=== PATIENT | female | born 1940 | race Caucasian/White ===

== ENCOUNTER 2017-12-20 14:00 | Inpatient (IN) ==
[2017-12-20] MEDS ORDERED: IOPAMIDOL 100 ML BOTTLE IV ONE (14:01)
[2017-12-20] MEDS ORDERED: 0.9 % SODIUM CHLORIDE 1,000 ML IV ONE ×3 (14:11→17:25)
[2017-12-20] MEDS ORDERED: ACETAMINOPHEN 325 MG TABLET PO ONE (14:14)
[2017-12-20 14:46] LABS: Mean Corpuscular HGB Conc 33.7 g/dL (31.0-36.0); Mean Corpuscular Hemoglobin 30.4 pg (26.0-34.0); Platelet Count 313 K/mcL (140-440); RBC 3.57 M/mcL (4.00-5.20); Red Cell Distribution Width 14.3 % (11.5-14.5)
[2017-12-20] MEDS ORDERED: IBUPROFEN 200 MG TABLET PO ONE (14:52)
[2017-12-20] MEDS: IBUPROFEN 400 MG TABLET PO ONE ×2 (14:55→14:56)
[2017-12-20 15:06] LABS: ALT/SGPT 22 U/l (0-40); Albumin/Globulin Ratio 1.3 (1.0-2.3); Alkaline Phosphatase 73 U/L (39-117); Blood Urea Nitrogen 21 mg/dl (8-23)
--- NOTE | 2017-12-20 15:10 | XRay Report ---
CLINICAL INFORMATION: Fever and weakness COMPARISON: 08/19/2017 FINDINGS: Moderate cardiomegaly is unchanged. Mediastinum is unremarkable. Pulmonary vessels are mildly distended the upper lobes. Mild underlying centrilobular emphysema changes seen as before. Focal scarring in the left lateral base unchanged. No effusion IMPRESSION: Mild CHF or volume overload. Moderate centrilobular emphysema Scarring left lateral base is stable - no definite infiltrate Interpreted and Authenticated by: Mo Delcid 12/20/17
[2017-12-20 15:15] LABS: Band Neutrophils % 1 % (0-10); Eosinophils % (Manual) 3 % (0-7); Lymphocytes % 5 % (15-49); Monocytes % (Manual) 4 % (1-12); Myelocytes % 1 % (0-0); Platelet Estimate NORMAL (NORMAL); RBC Morphology NORMAL (NORMAL); Segmented Neutrophils % 86 % (38-78)
[2017-12-20 15:22] LABS: Appearance,Urine CLEAR; Bilirubin,Urine NEG (NEG); Color,Urine YELLOW; Glucose,Urine (UA) NORM (NEG); Leukocyte Esterase,Urine TRACE /uL (NEG); Protein,Urine NEG (NEG); Specific Gravity,Urine 1.015 (1.000-1.035); Urine Blood NEG ery/mcL (<5); Urobilinogen,Urine NORM (NEG)
[2017-12-20 15:23] LABS: Bacteria,Urine 0 /hpf (0); Urine Hyaline Cast < 1 /lpf (0-2); Urine RBC < 1 /hpf (0-1); Urine Squamous Epithelial Cell < 1 /hpf (0-4); Urine WBC < 1 /hpf (0-4)
[2017-12-20] MEDS ORDERED: cefTRIAXone 1 GM VIAL IV ONE (15:33)
--- NOTE | 2017-12-20 16:17 | Emergency Department Note ---
Fever HPI - General Chief Complaint: Fever Stated Complaint: Fever, Lower abdominal pain. Pain with urination Time Seen by Provider: 12/20/17 14:14 Source: patient Mode of arrival: ambulatory Limitations: no limitations - History of Present Illness HPI Narrative: 77-year-old female presents with fever, disorientation, abdominal pain and back pain. States she is currently being treated for UTI and just finished her Keflex yesterday. States she has been getting worse not better. Positive nausea. No vomiting or diarrhea. Fever of 103 at home. She was also 103 on arrival here today. No cough or sore throat. No cold symptoms. No headache or rash. No treatments prior to arrival. Denies any chest pain or syncope. No dizziness. Does have some generalized weakness. - Related Data Home Medications Medication Instructions Recorded Confirmed Fluticasone Propionate [Flonase] 0 mg INTRANASAL BID 12/20/17 12/20/17 Previous Rx's Medication Instructions Recorded aspirin 325 mg tablet,delayed 325 mg PO QDAY #30 tab 05/27/17 release lactobacillus combination no.8 3 3,000 mmu cells PO QDAY #30 cap 06/14/17 billion cell capsule risperidone 1 mg tablet 1 mg PO QDAY #30 tab 07/14/17 cetirizine 10 mg capsule 10 mg PO QDAY #30 cap 08/11/17 azelastine 0.15 % (205.5 mcg) 2 spray INTRANASAL BID #30 ml 10/17/17 nasal spray gabapentin 300 mg capsule 300 mg PO QHS #30 cap 10/17/17 E2/E3 20/80 1MG/GM 0.5 g TOPICAL DIRECTED #100 g 11/24/17 phenazopyridine 97.5 mg tablet 97.5 mg PO TID PRN #30 tab 11/29/17 Urinary Pain Relief 97.5 mg tablet 97.5 mg PO TID PRN 21 Days #30 tab 12/08/17 NS Allergies Allergy/AdvReac Type Severity Reaction Status Date / Time grass pollen Allergy Unknown Nasal Verified 12/20/17 14:05 Discharge, sinus stuffy Minocycline Allergy Unknown Rash, fever Verified 12/20/17 14:05 Tetracyclines Allergy Unknown Rash, fever Verified 12/20/17 14:05 Review of Systems All systems ED: reviewed and negative except as stated. Fever PMH - Past Medical History PMF Narrative: Past Surgical History (Last Reviewed 12/08/17 @ 14:51 by Lili Ty [facility]) H/O Achilles tendon repair (Chronic) H/O colonoscopy (Chronic 09/17/08) H/O mastectomy (Chronic) H/O oophorectomy (Chronic) H/O: hysterectomy (Chronic) History of cholecystectomy (Chronic) Hx of tonsillectomy (Chronic) Medical history: Reports: arthritis, cancer, COPD, coronary artery disease, DM, GERD, hyperlipidemia, myocardial infarction, osteoporosis, renal disease, other Surgical history ED: Reports: cholecystectomy, tonsillectomy, other (Mastectomy) Psychiatric history: Reports: depression, previous psychiatric hospitalization, other (previous psychosis) - Social History smoking status: Former smoker Alcohol use: Reports: None Drug use: Reports: none Physical Exam Limitations: no limitations General appearance: alert, in no apparent distress Head: atraumatic, normocephalic, normal inspection Eye: Present: normal appearance, PERRL. Absent: conjunctival injection ENT: normal exam, normal oropharynx, mucous membranes moist, TM's normal bilaterally, normal external ear exam Neck: Present: normal inspection, trachea midline. Absent: tenderness, meningismus Chest: Present: normal inspection, symmetric chest wall rise Respiratory: Present: normal lung sounds bilaterally, other (Sounds slightly diminished in the bases otherwise cta). Absent: respiratory distress, wheezes, accessory muscle use Cardiovascular: Present: regular rate, normal heart sounds Abdominal: Present: soft, tenderness (Diffuse abdominal tenderness throughout). Absent: distention, guarding, rebound, mass Extremities: Present: normal inspection, normal capillary refill Neurological: Present: alert (She is alert and answers questions and generally knows why she is here however she was repetitive at times) Psychiatric: Present: normal affect, normal mood Skin: Present: warm, dry, intact, normal color, other (Flushed). Absent: rash, cyanosis, diaphoresis Course Vital Signs Temperature 103.8 F H 12/20/17 14:01 Pulse Rate 94 H 12/20/17 14:01 Respiratory Rate 24 H 12/20/17 14:01 Blood Pressure 106/45 12/20/17 14:01 Pulse Oximetry (%) 93 12/20/17 14:01 Temperature 97.9 F 12/20/17 16:47 Pulse Rate 67 12/20/17 16:47 Respiratory Rate 18 12/20/17 16:47 Blood Pressure 87/59 12/20/17 16:47 Pulse Oximetry (%) 95 12/20/17 16:47 Fever - Lab Data Result diagrams: 12/20/17 14:10 12/20/17 14:10 Lab Results 12/20/17 12/20/17 12/20/17 Range/Units 14:10 14:10 14:10 WBC 12.2 H (4.5-11.0) K/mcL RBC 3.57 L (4.00-5.20) M/mcL Hgb 10.8 L (12.0-15.0) g/dL Hct 32.2 L (36.0-48.0) % MCV 90.0 (80.0-100.0) fL MCH 30.4 (26.0-34.0) pg MCHC 33.7 (31.0-36.0) g/dL RDW 14.3 (11.5-14.5) % Plt Count 313 (140-440) K/mcL MPV 7.0 L (7.4-10.4) fL Total Counted 100 Seg Neutrophils % 86 H (38-78) % Band Neutrophils % 1 (0-10) % Lymphocytes % 5 L (15-49) % Monocytes % (Manual) 4 (1-12) % Eosinophils % (Manual) 3 (0-7) % Myelocytes % 1 H (0-0) % Platelet Estimate Normal (NORMAL) RBC Morphology Normal (NORMAL) VBG Lactic Acid 1.0 (0.5-2.2) mmol/L Sodium 132 L (133-145) mmol/L Potassium 4.5 (3.3-5.1) mmol/L Chloride 96 (96-108) mmol/L Carbon Dioxide 22 (22-30) mmol/L Anion Gap 14.0 (8-16) BUN 21 (8-23) mg/dl Creatinine 1.1 (0.6-1.1) mg/dl GFR Calculation 49 Glucose 108 H (70-105) mg/dL Calcium 9.3 (8.6-10.4) mg/dl Total Bilirubin 0.4 (0.0-1.0) mg/dL AST 22 (0-37) U/l ALT 22 (0-40) U/l Alkaline Phosphatase 73 (39-117) U/L Total Protein 7.2 (5.9-8.4) gm/dL Albumin 4.0 (3.2-5.2) gm/dL Globulin 3.2 (2.2-3.7) gm/dL Albumin/Globulin Ratio 1.3 (1.0-2.3) Urine Color Urine Appearance Urine pH (5.0-9.0) Ur Specific Mcgrady (1.000-1.035) Urine Protein (NEG) mg/dL Urine Glucose (UA) (NEG) mg/dL Urine Ketones (NEG) mg/dL Urine Occult Blood (<5) kaylin/mcL Urine Nitrate (NEG) Urine Bilirubin (NEG) mg/dL Urine Urobilinogen (NEG) mg/dL Ur Leukocyte Esterase (NEG) /uL Urine RBC (0-1) /hpf Urine WBC (0-4) /hpf Ur Squamous Epith Cells (0-4) /hpf Urine Bacteria (0) /hpf Hyaline Casts (0-2) /lpf Ur Culture Indicated? 12/20/17 Range/Units 14:43 WBC (4.5-11.0) K/mcL RBC (4.00-5.20) M/mcL Hgb (12.0-15.0) g/dL Hct (36.0-48.0) % MCV (80.0-100.0) fL MCH (26.0-34.0) pg MCHC (31.0-36.0) g/dL RDW (11.5-14.5) % Plt Count (140-440) K/mcL MPV (7.4-10.4) fL Total Counted Seg Neutrophils % (38-78) % Band Neutrophils % (0-10) % Lymphocytes % (15-49) % Monocytes % (Manual) (1-12) % Eosinophils % (Manual) (0-7) % Myelocytes % (0-0) % Platelet Estimate (NORMAL) RBC Morphology (NORMAL) VBG Lactic Acid (0.5-2.2) mmol/L Sodium (133-145) mmol/L Potassium (3.3-5.1) mmol/L Chloride (96-108) mmol/L Carbon Dioxide (22-30) mmol/L Anion Gap (8-16) BUN (8-23) mg/dl Creatinine (0.6-1.1) mg/dl GFR Calculation Glucose (70-105) mg/dL Calcium (8.6-10.4) mg/dl Total Bilirubin (0.0-1.0) mg/dL AST (0-37) U/l ALT (0-40) U/l Alkaline Phosphatase (39-117) U/L Total Protein (5.9-8.4) gm/dL Albumin (3.2-5.2) gm/dL Globulin (2.2-3.7) gm/dL Albumin/Globulin Ratio (1.0-2.3) Urine Color Yellow Urine Appearance Clear Urine pH 6.0 (5.0-9.0) Ur Specific [place]y 1.015 (1.000-1.035) Urine Protein Neg (NEG) mg/dL Urine Glucose (UA) Norm (NEG) mg/dL Urine Ketones Neg (NEG) mg/dL Urine Occult Blood Neg (<5) kaylin/mcL Urine Nitrate Pos A (NEG) Urine Bilirubin Neg (NEG) mg/dL Urine Urobilinogen Norm (NEG) mg/dL Ur Leukocyte Esterase Trace (NEG) /uL Urine RBC < 1 (0-1) /hpf Urine WBC < 1 (0-4) /hpf Ur Squamous Epith Cells < 1 (0-4) /hpf Urine Bacteria 0 (0) /hpf Hyaline Casts < 1 (0-2) /lpf Ur Culture Indicated? No Disposition Pt seen by MANAGEMENT DEVELOPMENT SPECIALIST/PA only: Yes Clinical Impression: Fever, Diverticulitis, Urinary tract infection Referrals: Silvia Arizmendi, ANDREY, SHORTS SIFTER [Primary Care Provider] -
[2017-12-20] MEDS ORDERED: HYDROmorphone 2 MG/ML VIAL IV PRN (16:43)
--- NOTE | 2017-12-20 16:47 | Cat Scan Report ---
CLINICAL INFORMATION: Abdominal pain chronic UTIs COMPARISON: None. TECHNIQUE: Following enteric contrast, 80 cc of Isovue-300 were injected intravenously, and 60 seconds later, 0.625 mm helical slices were obtained from the mid heart through the subtrochanteric regions. Following reconstruction, 2.5 mm sagittal, coronal and axial reformatted images were processed and reviewed at bone, lung and soft tissue windows. Five minutes later, 0.625 mm helical slices were obtained from the mid heart through the kidneys and viewed at soft tissue windows.The exam was performed using radiation dose optimization techniques including, but not limited to, automated exposure control, adjustment of the mA and/or kV according to patient size and use of iterative reconstruction technique. FINDINGS: Lung bases show moderate peripheral interstitial fibrosis and scattered bullae - similar to a chest CT from 09/24/2016. No effusions. The visualized heart is grossly normal. Images through the abdomen show the liver to be normal in size, configuration and attenuation. The gallbladder is surgically absent. Intrahepatic and common bile ducts are normal caliber CBD is 5 mm. Both kidneys, adrenal glands, spleen, pancreas and aorta including aortic branches are normal in size configuration and attenuation without focal lesion. Images through the pelvis show Riley catheter proper position in the urinary bladder. Bladder is normal. Hysterectomy last oophorectomy changes are noted. There is moderate simple appearing diverticulitis in the mid/distal sigmoid colon. The wall is mildly thickened and there is mild inflammation in the perisigmoid fat. No abscess identified. The remaining colon appendix small bowel and stomach are normal. Bone windows show only degenerative changes in the lumbar spine IMPRESSION: 1. Mild diverticulitis in the mid and distal sigmoid colon. No abscess or other complication. 2. Both kidneys, upper collecting systems, ureters and urinary bladder are unremarkable. 3. Moderate interstitial fibrosis in the lung bases with scattered bullae similar to chest CT from 09/24/2016. 4. Interpreted and Authenticated by: Mo Delcid 12/20/17
[2017-12-20] MEDS ORDERED: metroNIDAZOLE 500 MG/100 ML BAG IV ONE ×2 (17:28→18:00)
[2017-12-20] MEDS ORDERED: IBUPROFEN 600 MG TABLET PO PRN (17:44)
[2017-12-20] MEDS ORDERED: NALOXONE HCL 0.4 MG/ML VIAL IV PRN (17:44)
[2017-12-20] MEDS ORDERED: LIDOCAINE 5% OINT TUBE 35GM TOPICAL PRN (17:44)
[2017-12-20] MEDS ORDERED: ACETAMINOPHEN 325 MG TABLET PO PRN (17:44)
[2017-12-20] MEDS ORDERED: ONDANSETRON 4 MG/2 ML VIAL IV PRN (17:44)
--- NOTE | 2017-12-20 17:45 | Internal Med History&Physical ---
Medical - H&P: HPI Patient information: Note initiated : 12/20/17 at 5:36 pm Service Date, if different from initiated Date: [] Patient: Jamila Delgadillo a 77 y/o F admitted on for Fever, Lower abdominal pain. Pain with urination. Chief Complaint: [] History of present illness: Ms. Delgadillo is a 77 year old Female with h/o psych issues presents to the ER today with complaints of fever x 1 day, she ntoes that she was doing ok till yesterday, butn noted that she had high grade fever, and not feeling well therefore presented to the ER. She is a poor history provider, and had was unable to provide a comphrensive history She notes that for the last few weeks she has been having lower pelvic pain, burining urine and hypogastric abdominal pain, she has been diagnosed with UTI multiple times and has had 3 rounds of antibiotics by her urologist. The patient reports severe pain, during micuration, burning sensation, increased frequency of urination. Today she noted that she had a high grade fever and therefore presented to the ER. She is just completed a course of Keflex for UTI. The patient notes that she has intermittent constipation, but no other complaints, no headache or dizziness, no runny nose, no couhg, no chest pain, no shorntess of breath, no nausea or vomiting, no diarrhea. She has no flank pain, Fever and malaise, chills only for 1 day. In the ER she was noted to be very febrile on presentation, Her labs showed leucocytosis with wbc of 12, normal lactic ac id, and labile bp, she was given rocephin and IV fluids with improvement in her condition. The pt had CT abdomen which showed mild sigmoid diverticulitis. She is being admitted to the hospital for further management. 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) Unspecified psychosis (Chronic) Closed head injury (Resolved) Pulmonary nodule, right (Chronic) Bigeminal rhythm (Chronic) COPD (chronic obstructive pulmonary disease) (Chronic ~2002) Exposure to TB (Resolved) History of tobacco use (Chronic) Sinus drainage (Chronic) Anxiety (Chronic) Anemia (Chronic) Skin disorder (Chronic) Sinusitis, chronic (Chronic) SOB (shortness of breath) (Chronic) Rheumatic fever (Chronic) Retinal detachment (Chronic) Renal failure (Resolved) 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 ) Positive LAMONT (antinuclear antibody) (Chronic 05/23/14) Pneumonia due to Streptococcus (Resolved) Osteoarthrosis (Chronic 11/12/13) Myocardial infarct, old (Chronic) Lung disease (Chronic) On termite treater drug therapy (Chronic) Left bundle branch block (LBBB) (Chronic) Hyperlipidemia (Chronic) Heartburn (Chronic) DMII (diabetes mellitus, type 2) (Chronic) Depression (Chronic) Physical deconditioning (Chronic) Cough (Chronic 04/23/14) Cataract (Chronic) Breast cancer (Chronic) Acute psychosis (Resolved) Concussion without loss of consciousness (Resolved) Sinusitis (Resolved) UTI (urinary tract infection) (Resolved) Surgical history: Past Surgical History (Last Reviewed 12/08/17 @ 14:51 by CINDY Painter) H/O Achilles tendon repair (Chronic) H/O colonoscopy (Chronic 09/17/08) H/O mastectomy (Chronic) H/O oophorectomy (Chronic) H/O: hysterectomy (Chronic) History of cholecystectomy (Chronic) Hx of tonsillectomy (Chronic) Pertinent family history: Family History (Last Reviewed 12/08/17 @ 14:51 by CINDY Painter) Grandfather Diabetes Grandmother Arthritis Dementia Diabetes Grandmother Cancer Mother Dementia Father Heart attack Family/Other Tuberculosis Family/Other Tuberculosis Medical - H&P: Meds Home Medications Medication Instructions Recorded Confirmed Type aspirin 325 mg tablet,delayed 325 mg PO QDAY #30 tab 05/27/17 12/20/17 Rx release lactobacillus combination no.8 3 3,000 mmu cells PO QDAY #30 cap 06/14/17 Rx billion cell capsule risperidone 1 mg tablet 1 mg PO QDAY #30 tab 07/14/17 12/20/17 Rx cetirizine 10 mg capsule 10 mg PO QDAY #30 cap 08/11/17 12/20/17 Rx azelastine 0.15 % (205.5 mcg) 2 spray INTRANASAL BID #30 ml 10/17/17 12/20/17 Rx nasal spray gabapentin 300 mg capsule 300 mg PO QHS #30 cap 10/17/17 12/20/17 Rx E2/E3 20/80 1MG/GM 0.5 g TOPICAL DIRECTED #100 g 11/24/17 12/20/17 Rx phenazopyridine 97.5 mg tablet 97.5 mg PO TID PRN #30 tab 11/29/17 12/08/17 Rx Urinary Pain Relief 97.5 mg tablet 97.5 mg PO TID PRN 21 Days #30 tab 12/08/17 12/08/17 Rx NS Fluticasone Propionate [Flonase] 0 mg INTRANASAL BID 12/20/17 12/20/17 History Allergies Allergy/AdvReac Type Severity Reaction Status Date / Time grass pollen Allergy Unknown Nasal Verified 12/20/17 14:05 Discharge, sinus stuffy Minocycline Allergy Unknown Rash, fever Verified 12/20/17 14:05 Tetracyclines Allergy Unknown Rash, fever Verified 12/20/17 14:05 Medical - H&P: Exam - Constitutional Vitals: Temp Pulse Resp BP Pulse Ox 100.2 F H 63 21 102/59 94 12/20/17 17:31 12/20/17 17:01 12/20/17 17:31 12/20/17 17:31 12/20/17 17:01 Exam: GENERAL: The patient is a well-developed, well-nourished in no apparent distress. Is alert and oriented x3. VITAL SIGNS: Reviewed and as noted elsewhere. HEENT: Head is normocephalic and atraumatic. Extraocular muscles are intact. Pupils are equal, round, and reactive to light. Nares appeared normal. Mouth appears any without lesions. Mucous membranes are moist. NECK: Normal to inspection, Supple, No lymphadenopathy or thyromegaly. LUNGS: Air entry equal on both sides, no wheezing, crackles or rhonchi noted. No accessory muscles of respiration HEART: Regular rate and rhythm normal, S1 and S2 heard, no Gallop, S3 or Rub Noted, systolic mumrur mitral 4/6 ABDOMEN: Soft, and nondistended. mild hypogastric tenderness, Positive bowel sounds. No hepatosplenomegaly was noted. EXTREMITIES: No cyanosis, clubbing, rash, lesions or edema. NEUROLOGIC: Cranial nerves II through XII are grossly intact. Motor and Sensory System Grossly Intact PSYCHIATRIC: Normal affect, normal mood, SKIN: No ulceration or wounds noted, No jaundice, No rash noted. Medical - H&P: Reslt - Labs CBC & Chem 7: 12/20/17 14:10 12/20/17 14:10 Labs: Short CBC 12/20/17 Range/Units 14:10 WBC 12.2 H (4.5-11.0) K/mcL Hgb 10.8 L (12.0-15.0) g/dL Hct 32.2 L (36.0-48.0) % Plt Count 313 (140-440) K/mcL BMP 12/20/17 14:10 Sodium 132 L Potassium 4.5 Chloride 96 Carbon Dioxide 22 BUN 21 Creatinine 1.1 Glucose 108 H Calcium 9.3 Liver Function 12/20/17 Range/Units 14:10 Total Bilirubin 0.4 (0.0-1.0) mg/dL AST 22 (0-37) U/l ALT 22 (0-40) U/l Alkaline Phosphatase 73 (39-117) U/L Albumin 4.0 (3.2-5.2) gm/dL Urine 12/20/17 Range/Units 14:43 Urine Color Yellow Urine Appearance Clear Urine pH 6.0 (5.0-9.0) Ur Specific [place] 1.015 (1.000-1.035) Urine Protein Neg (NEG) mg/dL Urine Glucose (UA) Norm (NEG) mg/dL Medical - H&P: A/P - Narrative A/P Narrative: A/P Diveritculitis Sepsis COPD stable, no wheeze Urethreitis psychotic disorder, Plan Admit to med surg IV fludis, give total of 4L saline bolus. Monitor bp closely IV cipro and IV flagyl for diverticulitis low residue diet follow cultures topical lidocaine for urethritis, continue home medications. 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
[2017-12-20] MEDS ORDERED: IPRATROPIUM/ALBUTEROL 3 ML AMPUL.NEB NEB PRN (17:51)
[2017-12-20] MEDS: 0.9 % SODIUM CHLORIDE 1,000 ML IV SCH (18:52)
[2017-12-20] MEDS: oxyCODONE/APAP 5/325MG TABLET PO PRN (19:09)
[2017-12-20] MEDS: CIPROFLOXACIN 400 MG/200 ML BAG IV SCH (19:12)
[2017-12-20] MEDS ORDERED: [UNRECOGNIZED DRUG - MIXTURE] TOPICAL SCH (21:00)
[2017-12-20] MEDS: GABAPENTIN 300 MG CAPSULE PO SCH (21:25)
[2017-12-20] MEDS: HEPARIN 5,000 UNIT/ML VIAL SQ SCH (21:25)
[2017-12-20] MEDS: FAMOTIDINE/PF 20 MG/2 ML VIAL IV SCH (21:25)
[2017-12-20] MEDS: AZELASTINE HCL NAS SCH (21:32)
[2017-12-20] MEDS: FLUTICASONE PROPIONATE SPRAY.NAS NS SCH (21:32)
[2017-12-20] MEDS: 0.9 % SODIUM CHLORIDE 10 ML SYRINGE IV SCH (21:32)
[2017-12-21] MEDS: metroNIDAZOLE 500 MG/100 ML BAG IV SCH ×4 (00:28→21:39)
[2017-12-21] MEDS: 0.9 % SODIUM CHLORIDE 1,000 ML IV SCH ×2 (04:18→08:21)
[2017-12-21] MEDS: oxyCODONE/APAP 5/325MG TABLET PO PRN ×2 (05:48→20:11)
[2017-12-21] MEDS: 0.9 % SODIUM CHLORIDE 10 ML SYRINGE IV SCH ×3 (05:49→21:40)
[2017-12-21 08:13] LABS: Basophils # (Auto) 0 K/mcL (0.0-0.3); Basophils % (Auto) 0.7 % (0.0-2.0); Eosinophils # (Auto) 0.4 K/mcL (0.0-0.7); Eosinophils % (Auto) 5.8 % (0.0-7.0); Granulocytes % (Auto) 74.8 % (38.0-78.0); Lymphocytes # (Auto) 0.8 K/mcL (1.5-4.8); Lymphocytes % (Auto) 10.8 % (15.5-49.0); Mean Cell Volume 90.6 fL (80.0-100.0); Mean Corpuscular HGB Conc 33.5 g/dL (31.0-36.0); Mean Corpuscular Hemoglobin 30.3 pg (26.0-34.0); Monocytes # (Auto) 0.6 K/mcL (0.1-0.9); Monocytes % (Auto) 7.9 % (1.0-12.0); Platelet Count 240 K/mcL (140-440); RBC 3.05 M/mcL (4.00-5.20); Red Cell Distribution Width 14.8 % (11.5-14.5)
[2017-12-21 08:33] LABS: ALT/SGPT 19 U/l (0-40); Albumin 3.1 gm/dL (3.2-5.2); Albumin/Globulin Ratio 1.1 (1.0-2.3); Alkaline Phosphatase 60 U/L (39-117); Bilirubin,Direct < 0.2 mg/dL (0.0-0.3); Blood Urea Nitrogen 14 mg/dl (8-23); Gamma Glutamyl Transpeptidase 18 U/L (5-36)
[2017-12-21] MEDS: FAMOTIDINE/PF 20 MG/2 ML VIAL IV SCH ×2 (09:26→20:11)
[2017-12-21] MEDS: HEPARIN 5,000 UNIT/ML VIAL SQ SCH ×2 (09:27→20:11)
[2017-12-21] MEDS: DOCUSATE SODIUM 100 MG CAPSULE PO SCH ×2 (09:29→20:11)
[2017-12-21] MEDS: FLUTICASONE PROPIONATE SPRAY.NAS NS SCH ×2 (09:29→20:11)
[2017-12-21] MEDS: AZELASTINE HCL NAS SCH ×2 (09:29→20:12)
[2017-12-21] MEDS: LACTOBACILLUS 1 CAPSULE PO SCH (09:29)
[2017-12-21] MEDS: risperiDONE 1 MG TABLET PO SCH (09:29)
[2017-12-21] MEDS: ASPIRIN 325 MG ENTERIC COATED TABLET PO SCH (09:29)
[2017-12-21] MEDS: CETIRIZINE 10 MG TABLET PO SCH (09:33)
[2017-12-21] MEDS: CIPROFLOXACIN 400 MG/200 ML BAG IV SCH ×2 (09:33→20:12)
--- NOTE | 2017-12-21 10:53 | Internal Med Progress Note ---
Medical - PN: Subj Patient information: Note initiated : 12/21/17 at 10:49 am Service Date, if different from initiated Date: [] Patient: Jamila Delgadillo a 77 y/o F admitted on 12/20/17 for Fever, Lower Abdominal Pain, Pain with Urination. Chief Complaint: [] Interval history: Ms. Delgadillo is a 77 year old Female with h/o psych issues presents to the ER today with complaints of fever x 1 day, she ntoes that she was doing ok till yesterday, butn noted that she had high grade fever, and not feeling well therefore presented to the ER. She is a poor history provider, and had was unable to provide a comphrensive history She notes that for the last few weeks she has been having lower pelvic pain, burining urine and hypogastric abdominal pain, she has been diagnosed with UTI multiple times and has had 3 rounds of antibiotics by her urologist. The patient reports severe pain, during micuration, burning sensation, increased frequency of urination. Today she noted that she had a high grade fever and therefore presented to the ER. She is just completed a course of Keflex for UTI. The patient notes that she has intermittent constipation, but no other complaints, no headache or dizziness, no runny nose, no couhg, no chest pain, no shorntess of breath, no nausea or vomiting, no diarrhea. She has no flank pain, Fever and malaise, chills only for 1 day. In the ER she was noted to be very febrile on presentation, Her labs showed leucocytosis with wbc of 12, normal lactic ac id, and labile bp, she was given rocephin and IV fluids with improvement in her condition. The pt had CT abdomen which showed mild sigmoid diverticulitis. She is being admitted to the hospital for further management. Dec 21 patient seen examined, still has caal in place, which is bothering her, but beyond this has no other acute complaints, toleating po well, feels hungry, leucocytosis is resolved. continue antibioticx x 1 more day, and anticipate d/c in AM if remains stable. Pertinent ROS: Denies headache, dizziness Denies chest pain, palpitations Denies cough or shortness of breath Denies abdominal pain, nausea or vomiting. - Constitutional Vitals: Vital Signs Temp Pulse Resp BP Pulse Ox 98.6 F 62 16 100/53 96 12/21/17 06:52 12/21/17 07:36 12/21/17 07:36 12/21/17 06:52 12/21/17 08:00 Period Temp Pulse Resp BP Sys/Mace Pulse Ox Last 24 Hr 97.8 F-103.8 F 60-94 11-26 87-126/45-106 90-96 Intake and Output 12/20/17 12/21/17 12/21/17 21:59 05:59 13:59 Intake Total 2730 / 2730 1300 / 1300 340 / 340 Output Total 950 / 950 950 / 950 750 / 750 Balance 1780 / 1780 350 / 350 -410 / -410 Weight 156 lb 8 oz Intake & Output: Intake & Output 12/20/17 12/21/17 12/21/17 21:59 05:59 13:59 Intake Total 2730 / 2730 1300 / 1300 340 / 340 Output Total 950 / 950 950 / 950 750 / 750 Balance 1780 / 1780 350 / 350 -410 / -410 Weight 156 lb 8 oz Intake: IV 2730 / 2730 1100 / 1100 100 / 100 Sodium Chloride 0.9% 1,000 ml @ 2500 / 2500 1000 / 1000 100 mls/hr IV .Q10H [facility] Rx#: [id number] FLAGYL 500 mg In 100 ml As IV . 30 / [facility] Rx#:[id number] Oral 200 / 200 240 / 240 Output: Urine Catheter Amount 950 / 950 950 / 950 750 / 750 Other: Meal Breakfast Percent of Meal Consumed 50% Feeding Ability Independent # Voids 1 # Bowel Movements 1 Exam: Constitutional; Afebrile, cooperative, alert, not in distress. Eyes- No icterus, , No periorbital swelling Ears- Ext ear normal, hearing normal to conversation. Neck- Midline trachea, supple Respiratory system: Air Entry equal on both sides, No crackles or wheezing, no rhonchi. CVS- Rate rhythm regular, S1,S2 heard, no gallop, no rub. Abdomen- Soft abdomen, no organomegaly, no tenderness, no guarding or rigidity, HEEL SORTER- AOOx3, moving all extremities, no gross focal deficit noted. Medical - PN: Obj Da - Labs CBC & Chem 7: 12/21/17 07:29 12/21/17 07:29 Labs: Abnormal Lab Results 12/21/17 12/21/17 12/20/17 07:29 07:29 14:43 WBC RBC 3.05 L Hgb 9.3 L Hct 27.6 L RDW 14.8 H MPV 6.8 L Lymph % (Auto) 10.8 L Lymph # (Auto) 0.8 L Seg Neutrophils % Lymphocytes % Myelocytes % Sodium Carbon Dioxide 21 L Glucose Albumin 3.1 L Triglycerides 193 H Urine Nitrate Pos A 12/20/17 12/20/17 14:10 14:10 WBC 12.2 H RBC 3.57 L Hgb 10.8 L Hct 32.2 L RDW MPV 7.0 L Lymph % (Auto) Lymph # (Auto) Seg Neutrophils % 86 H Lymphocytes % 5 L Myelocytes % 1 H Sodium 132 L Carbon Dioxide Glucose 108 H Albumin Triglycerides Urine Nitrate Meds: Medications Acetaminophen (Tylenol) 650 mg PO Q6HP PRN PRN Reason: PAIN/FEVER > 101 Albuterol/Ipratropium (Duoneb) 3 ml NEB Q6HP PRN PRN Reason: Shortness Of Breath Aspirin (Ecotrin) 325 mg PO QDAY [facility] Last Admin: 12/21/17 09:29 Dose: 325 mg Cetirizine HCl (Zyrtec) 10 mg PO DAILY [facility] Last Admin: 12/21/17 09:33 Dose: 10 mg Docusate Sodium (Colace) 100 mg PO BID [facility] Last Admin: 12/21/17 09:29 Dose: 100 mg Famotidine (Pepcid) 20 mg IV Q12 [facility] Last Admin: 12/21/17 09:26 Dose: 20 mg Fluticasone Propionate (Flonase) 1 spray NS BID [facility] Last Admin: 12/21/17 09:29 Dose: Not Given Gabapentin (Neurontin) 300 mg PO QHS [facility] Last Admin: 12/20/17 21:25 Dose: 300 mg Heparin Sodium (Porcine) (Heparin) 5,000 unit SQ Q12 [facility] Last Admin: 12/21/17 09:27 Dose: 5,000 unit Ciprofloxacin (Cipro) 400 mg in 200 mls @ 200 mls/hr IV Q12H [facility] Last Admin: 12/21/17 09:33 Dose: 200 mls/hr Sodium Chloride (Sodium Chloride 0.9%) 1,000 mls @ 100 mls/hr IV .Q10H [facility] Stop: 12/21/17 13:43 Last Admin: 12/21/17 08:21 Dose: 100 mls/hr Metronidazole (Flagyl) 500 mg in 100 mls @ 100 mls/hr IV Q8H [facility] Last Infusion: 12/21/17 06:49 Dose: Infused Ibuprofen (Motrin) 600 mg PO QIDP PRN PRN Reason: PAIN/FEVER > 101 Lactobacillus Rhamnosus (Culturelle) 1 cap PO DAILY [facility] Last Admin: 12/21/17 09:29 Dose: 1 cap Lidocaine (Lidocaine 5% Oint) 1 dose TOPICAL TIDP PRN PRN Reason: Pain Naloxone HCl (Narcan) 0.1 mg IV Q2MIN PRN PRN Reason: Opiate Reversal Ondansetron HCl (Zofran) 4 mg IV Q6HP PRN PRN Reason: Nausea And Vomiting Oxycodone/Acetaminophen (Percocet 5-325 Mg) 1 tab PO Q4HP PRN PRN Reason: PAIN LEVEL 3-6 Last Admin: 12/21/17 05:48 Dose: 1 tab Azelastine Hcl [ (Astepro] [place]) 2 dose MIRIAM BID [facility] Last Admin: 12/21/17 09:29 Dose: Not Given E2/E3 20/80 1mg/Gm 0 (.5 G Cream) 0.5 dose TOPICAL Q48H [facility] Last Admin: 12/20/17 21:32 Dose: Not Given Risperidone (Risperdal) 1 mg PO QDAY [facility] Last Admin: 12/21/17 09:29 Dose: 1 mg Sodium Chloride (Saline Flush) 10 ml IV Q8 [facility] Last Admin: 12/21/17 05:49 Dose: 10 ml Medical - PN: A/P - Time Spent With Patient Total time spent is greater than 50% in coordination of care (as documented) at patient's floor/unit and/or counseling patient: - Narrative A/P Narrative: A/P, Diveritculitis: improving, low fiber diet, IV cipro and flagyl for now, clinically much better, await microbiology. Sepsis: resolved, COPD stable, no wheeze: no wheeze on exam, duonebs prn Urethritis: topical lidocaine prn, d/c caal, continue home meds psychotic disorder, on risperidone, continue same dvt hep sq Diet regular
[2017-12-21] MEDS: GABAPENTIN 300 MG CAPSULE PO SCH (20:11)
[2017-12-22 05:43] LABS: Basophils # (Auto) 0.1 K/mcL (0.0-0.3); Basophils % (Auto) 1.1 % (0.0-2.0); Eosinophils # (Auto) 0.6 K/mcL (0.0-0.7); Eosinophils % (Auto) 8.6 % (0.0-7.0); Granulocytes % (Auto) 58.8 % (38.0-78.0); Lymphocytes # (Auto) 1.4 K/mcL (1.5-4.8); Mean Cell Volume 90.8 fL (80.0-100.0); Mean Corpuscular HGB Conc 33.7 g/dL (31.0-36.0); Mean Corpuscular Hemoglobin 30.6 pg (26.0-34.0); Monocytes # (Auto) 0.8 K/mcL (0.1-0.9); Monocytes % (Auto) 11.5 % (1.0-12.0); Platelet Count 260 K/mcL (140-440); RBC 3.11 M/mcL (4.00-5.20); Red Cell Distribution Width 14.8 % (11.5-14.5)
[2017-12-22] MEDS: metroNIDAZOLE 500 MG/100 ML BAG IV SCH (05:43)
[2017-12-22] MEDS: 0.9 % SODIUM CHLORIDE 10 ML SYRINGE IV SCH (05:43)
[2017-12-22 06:15] LABS: ALT/SGPT 18 U/l (0-40); Albumin 3.3 gm/dL (3.2-5.2); Albumin/Globulin Ratio 1.3 (1.0-2.3); Alkaline Phosphatase 55 U/L (39-117); Bilirubin,Direct < 0.2 mg/dL (0.0-0.3); Blood Urea Nitrogen 14 mg/dl (8-23); Gamma Glutamyl Transpeptidase 18 U/L (5-36); Uric Acid 7.4 mg/dL (2.5-8.0)
[2017-12-22] MEDS: LACTOBACILLUS 1 CAPSULE PO SCH (08:59)
[2017-12-22] MEDS: ASPIRIN 325 MG ENTERIC COATED TABLET PO SCH (08:59)
[2017-12-22] MEDS: CETIRIZINE 10 MG TABLET PO SCH (09:00)
[2017-12-22] MEDS: risperiDONE 1 MG TABLET PO SCH (09:00)
[2017-12-22] MEDS ORDERED: CIPROFLOXACIN 500 MG TABLET PO SCH (09:00)
[2017-12-22] MEDS: FAMOTIDINE/PF 20 MG/2 ML VIAL IV SCH (09:01)
[2017-12-22] MEDS: HEPARIN 5,000 UNIT/ML VIAL SQ SCH (09:01)
[2017-12-22] MEDS: FLUTICASONE PROPIONATE SPRAY.NAS NS SCH (09:02)
[2017-12-22] MEDS: DOCUSATE SODIUM 100 MG CAPSULE PO SCH (09:02)
[2017-12-22] MEDS: AZELASTINE HCL NAS SCH (09:02)
--- NOTE | 2017-12-22 10:29 | Discharge Summary ---
Medical - DS: Prov Patient information: Note initiated : 12/22/17 at 10:24 am Service Date, if different from initiated Date: [] Patient: Jamila Delgadillo 77 y/o F admitted on 12/20/17 for Fever, Lower Abdominal Pain, Pain with Urination. Chief Complaint: [] Date of admission: 12/20/17 17:49 Discharge date: 12/22/17 Primary care physician: Silvia Arizmendi Admitting clinician: Sindi Hughes Consults: 12/20/17 16:57 Consult to Physician [CONS] Stat Comment: Consulting Provider: Sindi Hughes Reason For Exam: Physician to Consult Discharging clinician: Sindi Hughes Medical - DS: Meds - Discharge Medications Prescriptions: Ciprofloxacin HCl [Cipro] 500 mg PO BID #10 tab metroNIDAZOLE [Flagyl] 500 mg PO Q8 #15 tab Active and Home Medications: Home Medications aspirin 325 mg tablet,delayed release 325 mg PO QDAY #30 tab 05/27/17 [Rx Confirmed 12/20/17 Last Taken 12/20/17 08:00] lactobacillus combination no.8 3 billion cell capsule 3,000 mmu cells PO QDAY # 30 cap 06/14/17 [Rx Confirmed 12/20/17 Last Taken 12/17/17 08:00] risperidone 1 mg tablet 1 mg PO QDAY #30 tab 07/14/17 [Rx Confirmed 12/20/17 Last Taken 12/20/17 08:00] cetirizine 10 mg capsule 10 mg PO QDAY #30 cap 08/11/17 [Rx Confirmed 12/20/17 Last Taken 12/20/17 08:00] azelastine 0.15 % (205.5 mcg) nasal spray 2 spray INTRANASAL BID #30 ml [Rx Confirmed 12/20/17 Last Taken 12/20/17 08:00] gabapentin 300 mg capsule 300 mg PO QHS #30 cap 10/17/17 [Rx Confirmed 12/20/17 Last Taken 12/19/17 1900] phenazopyridine 97.5 mg tablet 97.5 mg PO TID PRN #30 tab 11/29/17 [Rx Confirmed 12/20/17 Last Taken 12/19/17 19:00] Fluticasone Propionate [Flonase] 0 mg INTRANASAL BID 12/20/17 [History Confirmed 12/20/17 Last Taken 12/20/17 0800] Medical - DS: Hosp Hospital course: Ms. Delgadillo is a 77 year old Female with h/o psych issues presented to the ER with complaints of fever x 1 day, she notes that she was doing ok till yesterday , but noted that she had high grade fever, and not feeling well therefore presented to the ER. She notes that for the last few weeks she has been having lower pelvic pain, burning urine and hypogastric abdominal pain, she has been diagnosed with UTI multiple times and has had 3 rounds of antibiotics by her urologist. The patient reports severe pain, during micturition, burning sensation, increased frequency of urination. she also noted that she had a high grade fever and therefore presented to the ER. She is just completed a course of Keflex for UTI. In the ER she was noted to be very febrile on presentation, Her labs showed leucocytosis with wbc of 12, normal lactic ac id, and labile bp, she was given Rocephin and IV fluids with improvement in her condition. The pt had CT abdomen which showed mild sigmoid diverticulitis. She is being admitted to the hospital for further management. Acute diverticulitis: The patients urinary symptoms may have been somewhat related to bladder inflammation due to colitis, but this is difficult to determine, none the less, she was treated with IV ciprofloxacin and IV flagyl and she responded to treatment very well. Her fever resolved, her urinary symptoms improved somewhat. She is able to tolerate PO diet well. She will be discharged on PO antibiotics to complete a course of 7 days. The patient has not had a colonoscopy, and would need one as outpatient in light of the diverticulitis. I have discussed this with her, will make a referral for same. The rest of the stay in the hospital was not significant, she notes she is weak and wanted a prescription for a front wheel walker which will be given to her. No changes in the patients home medication were done. Discharge diagnosis: Diveriticulitis - Time Spent with Patient Total time spent providing and/or coordinating discharge services: Greater than 30 minutes Medical - DS: Exam - Constitutional Vitals: Vital Signs Temp Pulse Pulse Resp BP BP Pulse Ox 12/22/17 07:29 58 L 95 12/22/17 07:13 97.3 F 58 L 18 110/62 95 12/22/17 04:00 97.0 F 60 18 94/46 99 12/22/17 00:00 98.8 F 80 18 110/44 95 12/21/17 20:00 98.7 F 88 20 114/48 95 12/21/17 16:56 93 12/21/17 15:46 98.5 F 18 102/56 97 12/21/17 12:00 97.4 F 18 106/57 97 Intake and Output 12/21/17 12/22/17 12/22/17 21:59 05:59 13:59 Intake Total 200 / 200 100 / 100 100 / 100 Output Total 550 / 550 Balance 200 / 200 -450 / -450 100 / 100 Intake: IV 100 / 100 100 / 100 100 / 100 Oral 100 / 100 Output: Void Amount 550 / 550 Other: Meal Dinner Breakfast Percent of Meal Consumed 100% 75% # Voids 1 1 # Bowel Movements 1 1 Weight 160 lb Additional comments: Constitutional; Afebrile, cooperative, alert, not in distress. Eyes- No icterus, , No periorbital swelling Ears- Ext ear normal, hearing normal to conversation. Neck- Midline trachea, supple Respiratory system: Air Entry equal on both sides, No crackles or wheezing, no rhonchi. CVS- Rate rhythm regular, S1,S2 heard, no gallop, no rub. Abdomen- Soft nontender abdomen, no organomegaly, no tenderness, no guarding or rigidity, WOOD TURNER- AOOx3, moving all extremities, no gross focal deficit noted. Medical - DS: Data Labs on day of discharge: Labs from last 24 hours 12/22/17 12/22/17 04:57 04:57 WBC 6.8 RBC 3.11 L Hgb 9.5 L Hct 28.2 L MCV 90.8 MCH 30.6 MCHC 33.7 RDW 14.8 H Plt Count 260 MPV 6.9 L Gran % 58.8 Lymph % (Auto) 20.0 [place] % (Auto) 11.5 Eos % (Auto) 8.6 H Baso % (Auto) 1.1 Gran # 4.0 Lymph # (Auto) 1.4 L [place] # (Auto) 0.8 Eos # (Auto) 0.6 Baso # (Auto) 0.1 Sodium 141 Potassium 4.0 Chloride 107 Carbon Dioxide 21 L Anion Gap 13.0 BUN 14 Creatinine 0.9 GFR Calculation 62 Glucose 95 Uric Acid 7.4 Calcium 8.7 Phosphorus 3.1 Magnesium 1.9 Total Bilirubin 0.3 Direct Bilirubin < 0.2 GGT 18 AST 17 ALT 18 Alkaline Phosphatase 55 Lactate Dehydrogenase 202 Total Protein 5.9 Albumin 3.3 Globulin 2.6 Albumin/Globulin Ratio 1.3 Triglycerides 153 H Preliminary micro results at discharge 12/20/17 14:14 Blood Culture - Preliminary Blood 12/20/17 14:10 Blood Culture - Preliminary Blood Medical - DS: A/P - Patient/Caregiver Discharge Instructions Activity: increase activity as tolerated Diet: Low Fiber Additional Instructions: Therapy is Recommending a Front Wheel Walker. Please take a low fiber diet till ok by your PCP. Prescriptions: Ciprofloxacin HCl [Cipro] 500 mg PO BID #10 tab metroNIDAZOLE [Flagyl] 500 mg PO Q8 #15 tab Other Amb Orders: Walker Location: Determined By Patient - Follow up Plan Follow up with: Silvia Arizmendi, ANDREY, [employer] [Primary Care Provider] - Disposition: Home, Self-Care Prognosis: Fair Rehab Potential: Fair I certify that the patient requires SNF services: No Overall status at discharge: patient is progressing back to baseline
== END 2017-12-22 11:40 | disposition home or self-care (01) | DRG 392 ==
LOC: ED 14:00 → MEDSUR 17:49
PROVIDERS: ADMIT Internal Medicine; ATTEND Internal Medicine

== ENCOUNTER 2024-01-05 04:38 | Inpatient (IN) ==
[2024-01-05 05:27] LABS: Basophils # (Auto) 0.08 K/mcL (0.00-0.30); Basophils % (Auto) 0.8 % (0.0-2.0); Eosinophils # (Auto) 0.45 K/mcL (0.00-0.70); Eosinophils % (Auto) 4.6 % (0.0-7.0); Hematocrit 41.4 % (34.1-44.9); Hemoglobin 13.5 g/dL (11.2-15.7); Lymphocytes # (Auto) 1.54 K/mcL (1.50-4.80); Lymphocytes % (Auto) 15.7 % (15.5-49.0); Mean Cell Volume 93.7 fL (80.0-100.0); Mean Corpuscular HGB Conc 32.6 g/dL (31.0-36.0); Mean Platelet Volume 9.2 fL (8.8-12.5); Monocytes # (Auto) 0.82 K/mcL (0.10-0.90); Monocytes % (Auto) 8.4 % (1.0-12.0); Neutrophils % (Auto) 70.1 % (38.0-78.0); Platelet Count 321 K/mcL (140-440); RBC 4.42 M/mcL (3.59-5.38); Red Cell Distribution Width 13.1 % (11.5-14.5); WBC 9.8 K/mcL (4.5-11.0)
[2024-01-05] MEDS: morphine 4 MG/ML VIAL IV ONE (05:38)
[2024-01-05] MEDS: 0.9 % SODIUM CHLORIDE 1,000 ML IV ONE (05:38)
[2024-01-05 05:59] LABS: ALT/SGPT 16 U/L (<40); AST/SGOT 25 U/L (<32); Albumin 3.9 gm/dL (3.2-5.2); Albumin/Globulin Ratio 1.2 (1.0-2.3); Alkaline Phosphatase 86 U/L (39-117); Bilirubin,Total < 0.2 mg/dL (0.1-1.0); Blood Urea Nitrogen 24 mg/dL (8-23); Calcium 9.6 mg/dL (8.6-10.4); Carbon Dioxide 26 mmol/L (22-30); Chloride 102 mmol/L (96-108); Globulin 3.3 gm/dL (2.2-3.7); Glomerular Filtration Rate 81; Glucose 101 mg/dL (70-105)
[2024-01-05] MEDS ORDERED: HYDROcodone/APAP 5/325MG TABLET PO PRN (10:19)
[2024-01-05] MEDS ORDERED: ONDANSETRON 4 MG/2 ML VIAL IV PRN (10:19)
[2024-01-05] MEDS ORDERED: ACETAMINOPHEN 325 MG TABLET PO PRN (10:19)
[2024-01-05] MEDS ORDERED: IPRATROPIUM/ALBUTEROL 3 ML AMPUL.NEB NEB PRN ×2 (10:19→17:30)
[2024-01-05] MEDS ORDERED: SENNOSIDES 1 TABLET PO PRN (10:19)
[2024-01-05] MEDS ORDERED: POTASSIUM CHLORIDE 40 MEQ in DEXTROSE 5% IN WATER 500 ML IV PRN (10:19)
[2024-01-05] MEDS ORDERED: POLYETHYLENE GLYCOL 3350 17 GM PACKET PO PRN ×2 (10:19→17:00)
[2024-01-05] MEDS ORDERED: POTASSIUM CHLORIDE 20 MEQ TABLET PO PRN ×2 (10:19)
[2024-01-05] MEDS ORDERED: MAGNESIUM SULFATE 2 GM/50 ML BAG IV PRN (10:19)
[2024-01-05] MEDS: DOCUSATE SODIUM 100 MG CAPSULE PO SCH (10:45)
[2024-01-05] MEDS: 0.9 % SODIUM CHLORIDE 1,000 ML IV SCH (11:12)
[2024-01-05] MEDS: morphine 4 MG/ML VIAL IV PRN (12:04)
[2024-01-05] MEDS: 0.9 % SODIUM CHLORIDE 10 ML SYRINGE IV SCH ×2 (12:05→22:05)
[2024-01-05] MEDS ORDERED: fentaNYL 100 MCG/2 ML VIAL ONE (14:31)
[2024-01-05] MEDS ORDERED: PROPOFOL 200 MG/20 ML VIAL IV ONE (16:37)
[2024-01-05] MEDS ORDERED: ROCURONIUM 10 MG/ML ML IV ONE (16:37)
[2024-01-05] MEDS ORDERED: ePHEDrine 50 MG/5 ML SYRINGE (ANEST) IV ONE (16:58)
[2024-01-05] MEDS ORDERED: FLEETS ADULT 1 DOSE ENEMA PR PRN (17:00)
[2024-01-05] MEDS ORDERED: MAGNESIUM HYDROXIDE 30 ML ORAL.SUSP PO PRN (17:00)
[2024-01-05] MEDS ORDERED: SUGAMMADEX SODIUM 200 MG/2 ML VIAL IV ONE (17:00)
[2024-01-05] MEDS ORDERED: BISACODYL 10 MG SUPP.RECT PR PRN (17:00)
[2024-01-05] MEDS ORDERED: BENZOCAINE/MENTHOL 1 LOZENGE PO PRN (17:00)
[2024-01-05] MEDS ORDERED: PHENYLephrine 1 MG/10 ML SYRINGE (ANEST) ONE (17:24)
[2024-01-05] MEDS ORDERED: fentaNYL 100 MCG/2 ML VIAL IV PRN (17:30)
[2024-01-05] MEDS ORDERED: NALOXONE HCL 0.4 MG/ML VIAL IV PRN (17:30)
[2024-01-05] MEDS: CARVEDILOL 3.125 MG TABLET PO ONE (17:56)
[2024-01-05 18:05] LABS: Appearance,Urine Cloudy (Clear); Bacteria,Urine Many /hpf (0); Bilirubin,Urine Negative (Negative); Color,Urine Yellow; Culture Indicated,Urine Yes; Glucose,Urine (UA) Negative (Negative); Ketones,Urine Negative (Negative); Leukocyte Esterase,Urine Moderate /uL (Negative); Nitrate,Urine Positive (Negative); Protein,Urine Negative (Negative); Urine Blood Trace-lysed ery/mcL (Negative); Urine RBC 0 /hpf (0-3); Urine Squamous Epithelial Cell 0 /hpf (0-4); Urine WBC > 182 /hpf (0-4); Urobilinogen,Urine Normal
[2024-01-05] MEDS: LACTATED RINGERS 1,000 ML IV SCH (18:42)
[2024-01-05] MEDS: ceFAZolin 2 GM in DEXTROSE 5% IN WATER 50 ML IV SCH (18:42)
[2024-01-05] MEDS: HYDROcodone/APAP 5/325MG TABLET PO PRN (19:13)
[2024-01-05] MEDS: CARVEDILOL 3.125 MG TABLET PO SCH (20:07)
[2024-01-05] MEDS: ASPIRIN 81 MG TAB.CHEW PO SCH (20:30)
[2024-01-05] MEDS: SENNOSIDES 1 TABLET PO SCH (20:31)
[2024-01-05] MEDS: QUEtiapine 25 MG TABLET PO SCH (20:32)
[2024-01-05] MEDS: LATANOPROST OPHTH DROPS 2.5ML BOTTLE OU SCH (20:34)
[2024-01-05] MEDS ORDERED: DOCUSATE SODIUM 100 MG CAPSULE PO SCH (21:00)
[2024-01-05] MEDS: ceFAZolin 1 GM VIAL IV SCH (23:49)
[2024-01-06 06:21] LABS: Basophils # (Auto) 0.06 K/mcL (0.00-0.30); Basophils % (Auto) 0.5 % (0.0-2.0); Eosinophils % (Auto) 2.7 % (0.0-7.0); Hematocrit 37.5 % (34.1-44.9); Lymphocytes # (Auto) 0.96 K/mcL (1.50-4.80); Lymphocytes % (Auto) 8.6 % (15.5-49.0); Mean Cell Volume 95.4 fL (80.0-100.0); Mean Platelet Volume 9.3 fL (8.8-12.5); Monocytes # (Auto) 0.91 K/mcL (0.10-0.90); Monocytes % (Auto) 8.1 % (1.0-12.0); Neutrophils % (Auto) 79.8 % (38.0-78.0); Platelet Count 266 K/mcL (140-440); RBC 3.93 M/mcL (3.59-5.38); Red Cell Distribution Width 13.4 % (11.5-14.5); WBC 11.2 K/mcL (4.5-11.0)
[2024-01-06 06:55] LABS: ALT/SGPT < 5 U/L (<40); AST/SGOT 29 U/L (<32); Albumin 3.4 gm/dL (3.2-5.2); Albumin/Globulin Ratio 1.2 (1.0-2.3); Alkaline Phosphatase 83 U/L (39-117); Bilirubin,Direct < 0.2 mg/dL (0-0.3); Bilirubin,Total 0.4 mg/dL (0.1-1.0); Blood Urea Nitrogen 20 mg/dL (8-23); Carbon Dioxide 22 mmol/L (22-30); Chloride 102 mmol/L (96-108); Globulin 2.9 gm/dL (2.2-3.7); Glomerular Filtration Rate 59; Glucose 121 mg/dL (70-105); Lactate Dehydrogenase 183 U/L (135-225); Phosphorous 2.8 mg/dL (2.5-4.5); Triglycerides 87 mg/dL (<150); Uric Acid 6.1 mg/dL (2.5-8.0)
[2024-01-06] MEDS: DONEPEZIL 10 MG TABLET PO SCH ×2 (08:33→21:42)
[2024-01-06] MEDS: METOPROLOL TARTRATE 25 MG TABLET PO SCH (14:20)
[2024-01-07] MEDS: cefTRIAXone 1 GM VIAL IV SCH (08:32)
[2024-01-07] MEDS: QUEtiapine 25 MG TABLET PO SCH ×2 (08:33→20:04)
[2024-01-08] MEDS: cefTRIAXone 1 GM VIAL IM SCH (09:27)
[2024-01-08 14:01] LABS: Basophils # (Auto) 0.05 K/mcL (0.00-0.30); Basophils % (Auto) 0.5 % (0.0-2.0); Eosinophils # (Auto) 0.49 K/mcL (0.00-0.70); Hematocrit 34.6 % (34.1-44.9); Hemoglobin 10.9 g/dL (11.2-15.7); Lymphocytes # (Auto) 1.13 K/mcL (1.50-4.80); Lymphocytes % (Auto) 11.6 % (15.5-49.0); Mean Cell Volume 97.5 fL (80.0-100.0); Mean Corpuscular HGB Conc 31.5 g/dL (31.0-36.0); Mean Platelet Volume 9.4 fL (8.8-12.5); Monocytes # (Auto) 0.74 K/mcL (0.10-0.90); Monocytes % (Auto) 7.6 % (1.0-12.0); Neutrophils % (Auto) 75.1 % (38.0-78.0); Platelet Count 239 K/mcL (140-440); RBC 3.55 M/mcL (3.59-5.38); Red Cell Distribution Width 13.3 % (11.5-14.5); WBC 9.7 K/mcL (4.5-11.0)
[2024-01-08] MEDS: TAMSULOSIN 0.4 MG CAPSULE PO SCH (14:06)
[2024-01-08 14:21] LABS: ALT/SGPT < 5 U/L (<40); AST/SGOT 19 U/L (<32); Albumin 3.3 gm/dL (3.2-5.2); Alkaline Phosphatase 79 U/L (39-117); Bilirubin,Total 0.3 mg/dL (0.1-1.0); Blood Urea Nitrogen 33 mg/dL (8-23); Calcium 9.1 mg/dL (8.6-10.4); Carbon Dioxide 25 mmol/L (22-30); Chloride 101 mmol/L (96-108); Globulin 3.2 gm/dL (2.2-3.7); Glomerular Filtration Rate 69; Glucose 170 mg/dL (70-105)
== END 2024-01-10 12:15 | DRG 481 ==
LOC: ED 04:38 → MEDSUR 10:00
PROVIDERS: ADMIT Internal Medicine; ATTEND Internal Medicine